=== PATIENT | male | born 1940 | race Caucasian/White ===

== ENCOUNTER 2017-08-16 08:25 | Day surgery (SDC) | payer OTHER ==
[2013-08-29 11:02] VITALS: BMI 23.6
[2017-08-16] MEDS ORDERED: LIDOCAINE 1% 20 ML MDV ID STA (09:32)
[2017-08-16] MEDS ORDERED: VERSED ONE (11:05)
[2017-08-16] MEDS ORDERED: DIPRIVAN 20 ML VIAL IVP ONE (11:05)
[2017-08-16 16:04] VITALS: BP 144/65; TEMP 97.2
--- NOTE | 2017-08-17 09:34 | OP ---
PROCEDURE: COLONOSCOPY TO THE CECUM WITH SNARE POLYPECTOMY. ENDOSCOPIST: Ele RINCON M.D. INDICATION: HISTORY OF ADENOMATOUS POLYPS INSTRUMENT: [id number]. MEDICATION: PER ANESTHESIA. PROCEDURE: The patient was positioned for colonoscopy. The digital rectal exam was negative. The colonoscope was inserted through the anus and advanced to the cecum. The cecum was identified using the ileocecal valve and the appendiceal orifice as landmarks. The scope was slowly withdrawn through an adequately prepped colon. [place] Bowel Prep Score 2+2+3=7. No evidence for residual polyp in the ascending colon. A very small polyp at 60cm was removed using cold snare polypectomy. The tissue was not retrieved. Diverticuli are seen in the left colon. Retroflex exam was otherwise normal. The patient tolerated the procedure without immediate complication. Withdraw time was not obtained. PLAN: 1. Repeat this exam in 5 years. CC: Dr. Pradeep HEATH
== END 2017-08-16 12:16 | disposition home or self-care (01) ==
LOC: SURG 08:25
PROVIDERS: ATTEND Internal Medicine Gastroenterology
DX: Z86.010 Personal history of colon polyps (principal); K63.5 Polyp of colon; K57.30 Diverticulosis of large intestine without perforation or abscess without bleeding